=== PATIENT | female | born 1945 | race Caucasian/White ===

== ENCOUNTER 2018-01-19 08:53 | Day surgery (SDC) | payer MEDICARE, OTHER ==
[2018-01-17 08:30] VITALS: BMI 24.7
[~2018-01-19 08:53] MED LIST: LACTATED RINGERS 1,000 ML IV SCH; LIDOCAINE 1% 20 ML VIAL (10MG/ML) FOR IV START INTRADERMA PRN; MIDAZOLAM 2 MG/2 ML VIAL IV PRN
[2018-01-19 09:24] VITALS: RESP 16; TEMP 98.5
[2018-01-19] MEDS ORDERED: PROPOFOL 10 MG/ML 20 ML VIAL IV ONE (10:04)
[2018-01-19] MEDS ORDERED: LIDOCAINE 1% INJ 10MG/ML (20 ML MDV) ONE (10:04)
--- NOTE | 2018-01-19 10:26 | P.PCN ---
Date of Procedure: 01/19/18 Procedure(s) Performed: BRIEF HISTORY: Patient is a 72-year-old pleasant white female, scheduled for an elective colonoscopy as a part of value should of prior history of colon polyps. Last colonoscopy was 3 years ago. PROCEDURE PERFORMED: Colonoscopy with snare polypectomy. PREOPERATIVE DIAGNOSIS: Of colon polyps. IV sedation per Anesthesia. PROCEDURE: After informed consent was obtained, the patient, was brought into the endoscopy unit. IV sedation was administered by Anesthesia under continuous monitoring. Digital rectal examination was normal. Initially the Olympus CF- 160 flexible video colonoscope was then inserted in the rectum, gradually advanced into the cecum without any difficulty. Careful examination was performed as the scope was gradually being withdrawn. Ileocecal valve and the appendiceal orifice were visualized and appeared normal. Prep was excellent. Mucosa of the cecum, ascending colon appeared normal. The transverse colon there was a 5 mm sessile polyp removed by snare polypectomy. The rest of the, transverse colon, descending colon, sigmoid colon, and rectum appeared normal. Retroflexion was performed in the rectum and weight 2 internal hemorrhoids were seen. The patient tolerated the procedure well. IMPRESSION: 5 mm sessile transverse colon polyp status post polypectomy Grade 2 internal hemorrhoids RECOMMENDATIONS: Findings of this examination were discussed with the patient as well as her family. She was advised to follow with the biopsy results. If the biopsy shows a tubular adenoma, she can have a repeat colonoscopy in 5 years.
[2018-01-19] MEDS ORDERED: LACTATED RINGERS 1,000 ML IV ONE (10:29)
[2018-01-19 10:56] VITALS: BP 129/78; PULSE 77
== END 2018-01-19 11:00 | disposition home or self-care (01) ==
LOC: ORWHC2ENDO 08:53
PROVIDERS: ATTEND Internal Medicine Gastroenterology
DX: Z12.11 Encounter for screening for malignant neoplasm of colon (principal); Z86.010 Personal history of colon polyps; K63.5 Polyp of colon; K64.1 Second degree hemorrhoids; K21.9 Gastro-esophageal reflux disease without esophagitis; Z87.891 Personal history of nicotine dependence; J45.909 Unspecified asthma, uncomplicated; Z85.51 Personal history of malignant neoplasm of bladder; Z79.891 Long term (current) use of opiate analgesic; Z79.899 Other long term (current) drug therapy; Z88.5 Allergy status to narcotic agent; Z88.8 Allergy status to other drugs, medicaments and biological substances
CPT/HCPCS: 45385; J2001; J2704; 88305

== ENCOUNTER 2019-02-13 14:42 | Emergency (ER) | payer MEDICARE, OTHER ==
[2019-02-13 14:47] VITALS: TEMP 99.3
[2019-02-13] MEDS ORDERED: SODIUM CHLORIDE 0.9% 1,000 ML IV STA (15:01)
[2019-02-13] MEDS ORDERED: LORazepam 2 MG/ML INJ IV STA (15:02)
--- NOTE | 2019-02-13 15:06 | ED ---
General Adult HPI - General Chief complaint: Anxiety Stated complaint: Anxiety Time Seen by Provider: 02/13/19 14:55 Source: patient, RN notes reviewed Mode of arrival: EMS Limitations: no limitations - History of Present Illness Initial comments: 73-year-old female presents emergency Department with chief complaint of uncontrolled shaking, anxiety issues. Patient states she stands top stair well and which she looked over the edge and states that she started uncontrollably shaking and which she was not sure if she is panicking. Patient did feel arya seated. Friend in the room states that she has not appeared well last couple days. She does have a history of bladder cancer, neuropathy, history of Paul-Farooq virus. Patient never had panic attacks of this nature. Patient denies any current chest pain she does have some pressure in the back of her head. She denies any focal weakness. - Related Data Home Medications Medication Instructions Recorded Confirmed Ergocalciferol [Vitamin D2] 50,000 unit PO JEWELL 01/26/15 01/17/18 Omeprazole [PriLOSEC] 40 mg PO DAILY 01/26/15 01/17/18 rOPINIRole HCL [Requip] 0.5 mg PO HS 01/26/15 01/19/18 Calcitriol [Rocaltrol] 0.25 mcg PO MOWEFR 01/17/18 01/17/18 DULoxetine HCL [Cymbalta] 60 mg PO DAILY 01/17/18 01/17/18 Folic Acid 2 tab PO HS 01/17/18 01/17/18 Latanoprost Ophth [Xalatan 0.005%] 1 drops BOTH EYES HS 01/17/18 01/17/18 oxyCODONE-APAP 5-325MG [Percocet 1 tab PO Q6HR PRN 01/17/18 01/17/18 5-325 mg] traZODone HCL 100 mg PO HS 01/17/18 01/17/18 Allergies Allergy/AdvReac Type Severity Reaction Status Date / Time acetylcysteine Allergy tongue,lip,throat Verified 01/19/18 09:25 [From Mucomyst] swelling adhesive Allergy Itching Verified 01/19/18 09:25 Sulfa (Sulfonamide Allergy affects WBC Verified 01/19/18 09:25 Antibiotics) chlordiazepoxide HCl AdvReac "out of it" Verified 01/19/18 09:25 [From Librium] gabapentin [From Neurontin] AdvReac affected Verified 01/19/18 09:25 vision morphine AdvReac "bobo in Verified 01/19/18 09:25 IV" Review of Systems ROS Statement: Those systems with pertinent positive or pertinent negative responses have been documented in the HPI. ROS Other: All systems not noted in ROS Statement are negative. Past Medical History Past Medical History: Asthma, Cancer, Fibromyalgia, GERD/Reflux Additional Past Medical History / Comment(s): states misdiagnosed w/[place]- does not have. Hx. restless leg, stage 3 kidney disease per pt, neuropathy feet- has spinal cord stimulator, hx. bladder cancer, hx. of colon polyps, currently cast on broken left hand, early glaucoma History of Any Multi-Drug Resistant Organisms: None Reported Past Surgical History: Cholecystectomy, Hysterectomy, Orthopedic Surgery Additional Past Surgical History / Comment(s): Breast Bx. and Breast Augmentation, R.Rotator cuff surgery x3, bladder cancer removed October 2017 Past Anesthesia/Blood Transfusion Reactions: Previous Problems w/ Anesthesia, Motion Sickness, Postoperative Nausea & Vomiting (PONV) Additional Past Anesthesia/Blood Transfusion Reaction / Comment(s): States has has problems waking up after a previous surgery once. Past Psychological History: Depression Smoking Status: Former smoker Past Alcohol Use History: None Reported Past Drug Use History: Opiates - Past Family History Mother Family Medical History: Cancer Additional Family Medical History / Comment(s): Mother had colon cancer. General Exam Limitations: no limitations General appearance: alert, in no apparent distress, other (Uncontrolled shaking, patient is conscious) Head exam: Present: atraumatic, normocephalic, normal inspection Eye exam: Present: normal appearance, PERRL, EOMI. Absent: scleral icterus, conjunctival injection, periorbital swelling ENT exam: Present: normal exam, mucous membranes moist Neck exam: Present: normal inspection. Absent: tenderness, meningismus, lymphadenopathy Extremities exam: Present: normal inspection, full ROM, normal capillary refill. Absent: tenderness, pedal edema, joint swelling, calf tenderness Neurological exam: Present: alert, oriented X3, CN II-XII intact, reflexes normal. Absent: motor sensory deficit Skin exam: Present: warm, dry, intact, normal color. Absent: rash Course Vital Signs 02/13/19 02/13/19 14:44 16:14 Temperature 99.3 F Pulse Rate 107 H 72 Respiratory 20 18 Rate Blood Pressure 156/66 134/71 O2 Sat by Pulse 99 97 Oximetry EKG Findings - EKG Comments: EKG Findings:: EKG was obtained and 1625 though patient has pain stimulator which caused artifacts. Rate is 69 CT 134 QRS 80 QT status QTC 424/454 Medical Decision Making - Medical Decision Making 73-year-old female presented for anxiety, panic attack. Patient did have labs EKG and CT secondary to complaint of headache. Patient will be discharged as she is symptom-free after Ativan. Patient will return for worsening symptoms. - Lab Data Result diagrams: 02/13/19 15:15 02/13/19 15:15 Lab Results 02/13/19 02/13/19 02/13/19 Range/Units 15:15 15:15 15:15 WBC 4.3 (3.8-10.6) k/uL RBC 3.58 L (3.80-5.40) m/uL Hgb 11.0 L (11.4-16.0) gm/dL Hct 32.8 L (34.0-46.0) % MCV 91.7 (80.0-100.0) fL MCH 30.8 (25.0-35.0) pg MCHC 33.6 (31.0-37.0) g/dL RDW 12.8 (11.5-15.5) % Plt Count 153 (150-450) k/uL Neutrophils % 49 % Lymphocytes % 41 % Monocytes % 7 % Eosinophils % 1 % Basophils % 0 % Neutrophils # 2.1 (1.3-7.7) k/uL Lymphocytes # 1.8 (1.0-4.8) k/uL Monocytes # 0.3 (0-1.0) k/uL Eosinophils # 0.1 (0-0.7) k/uL Basophils # 0.0 (0-0.2) k/uL Sodium 141 (137-145) mmol/L Potassium 4.5 (3.5-5.1) mmol/L Chloride 105 (98-107) mmol/L Carbon Dioxide 25 (22-30) mmol/L Anion Gap 11 mmol/L BUN 16 (7-17) mg/dL Creatinine 1.24 H (0.52-1.04) mg/dL Est GFR (CKD-EPI)AfAm 51 (>60 ml/min/1.73 sqM) Est GFR (CKD-EPI)NonAf 44 (>60 ml/min/1.73 sqM) Glucose 95 (74-99) mg/dL Calcium 9.3 (8.4-10.2) mg/dL Total Bilirubin 0.3 (0.2-1.3) mg/dL AST 18 (14-36) U/L ALT 19 (9-52) U/L Alkaline Phosphatase 48 (38-126) U/L Troponin I <0.012 (0.000-0.034) ng/mL Total Protein 6.5 (6.3-8.2) g/dL Albumin 4.0 (3.5-5.0) g/dL Disposition Clinical Impression: Acute anxiety, Panic attack Disposition: HOME SELF-CARE Condition: Stable Instructions (If sedation given, give patient instructions): Generalized Anxiety Disorder (ED) Additional Instructions: Please return to the Emergency Department if symptoms worsen or any other concerns. Is patient prescribed a controlled substance at d/c from ED?: No Referrals: Ritchie Bal DO [Primary Care Provider] - 1-2 days Time of Disposition: 16:43
--- NOTE | 2019-02-13 15:35 | CT ---
EXAMINATION TYPE: CT brain wo con DATE OF EXAM: 02/13/2019 COMPARISON: Neurologic deficit HISTORY: Near syncopal episode with dizziness, tremors and weakness CT DLP: 1099.[address] of the brain was performed. The ventricles, basal cisterns and sulci overlying the cerebral convexities demonstrate mild enlargem ent. There is no evidence for intracranial hemorrhage or sulcal effacement. There is decreased attenuation about the periventricular white matter and deep white matter of both c erebral hemispheres, compatible with chronic small vessel ischemia. Differential diagnosis does inclu de demyelination. No mass effects are seen.No midline shift. Osseous calvarium is intact. If symptoms persist consider MRI. IMPRESSION: 1. Age related atrophic and chronic small vessel ischemic change without acute intracranial process s een at this time.
[2019-02-13 15:54] LABS: Basophils % (A) 0 %; Eosinophils # (A) 0.1 k/uL (0-0.7); Eosinophils % (A) 1 %; HCT 32.8 % (34.0-46.0); Lymphocytes # (A) 1.8 k/uL (1.0-4.8); Lymphocytes % (A) 41 %; MCH 30.8 pg (25.0-35.0); MCHC 33.6 g/dL (31.0-37.0); MCV 91.7 fL (80.0-100.0); Mean Platelet Volume 8.9; Monocytes # (A) 0.3 k/uL (0-1.0); Monocytes % (A) 7 %; Neutrophils # (A) 2.1 k/uL (1.3-7.7); Neutrophils % (A) 49 %; Platelet Count 153 k/uL (150-450); RBC 3.58 m/uL (3.80-5.40); RDW 12.8 % (11.5-15.5); WBC 4.3 k/uL (3.8-10.6)
[2019-02-13 16:19] VITALS: BP 134/71; PULSE 72; RESP 18
[2019-02-13 16:29] LABS: Calcium 9.3 mg/dL (8.4-10.2); Potassium 4.5 mmol/L (3.5-5.1); Total Bilirubin 0.3 mg/dL (0.2-1.3); Total Protein 6.5 g/dL (6.3-8.2)
== END 2019-02-13 16:58 | disposition home or self-care (01) ==
LOC: EC 14:42
DX: F41.0 Panic disorder [episodic paroxysmal anxiety] (principal); F32.9 Major depressive disorder, single episode, unspecified; K21.9 Gastro-esophageal reflux disease without esophagitis; H40.9 Unspecified glaucoma; Z87.891 Personal history of nicotine dependence; Z79.899 Other long term (current) drug therapy; Z91.048 Other nonmedicinal substance allergy status; Z88.8 Allergy status to other drugs, medicaments and biological substances; Z88.2 Allergy status to sulfonamides; Z88.5 Allergy status to narcotic agent; Z85.51 Personal history of malignant neoplasm of bladder
CPT/HCPCS: 36415; 93005; 80053; 84484; 85025; 70450; 99284; 96374; 96361; J2060